=== PATIENT | female | born 1960 | race Caucasian/White ===

== ENCOUNTER → 2019-04-07 | Outpatient (CLI) | payer OTHER ==
[~2019-04-07] MED LIST: ASCO1ER PO; ERGO400 PO; FENO48 PO; GLUCHON PO; HYDROZINE; IBUP200 PO; LOPE2C PO; OMEP20ER PO; PROM25 PO; PROM25S PR; SUCR1 PO; VITA25000 PO; [UNRECOGNIZED DRUG - CODE]
== END | disposition home or self-care (01) ==
LOC: LAB 13:27 → LAB SHORT 13:27
PROVIDERS: Registered Nurse
DX: Z01.419 Encounter for gynecological examination (general) (routine) without abnormal findings (principal)
CPT/HCPCS: G0145